=== PATIENT | female | born 1960 | race Caucasian/White ===

== ENCOUNTER → 2016-07-18 | Outpatient (CLI) | payer OTHER ==
[~2016-07-18] MED LIST: ALBUAER2 INH; ALEN1TAB21 PO; B-COTAB69 PO; CHOL100010 PO; CLR10 PO; CRF1 PO; CYCL10TA6 PO; DOXY20TA3; FLUT0.15 NAE; GLCSR500 PO; LINA1CAP2 PO; MONT1TAB3 PO; NORT10CA2 PO; NORT50CA PO; OMEG10002 PO; ONDA4TAB46 PO; PANT40TA PO; POTA10CA28 PO; PREMARIN CREAM TOP; PRLSR20 PO; SIMV20TA2 PO; SODI5OIN4 OPB; SUMA100T16 PO; TRAV0.00 OPB; TRAZ100T29 PO; TRIA37.5 PO; ZANTAC PO; doxycycline PO
== END | disposition home or self-care (01) ==
LOC: C.LABBFT 08:39
PROVIDERS: ATTEND Internal Medicine Endocrinology, Diabetes & Metabolism
DX: Z86.39 Personal history of other endocrine, nutritional and metabolic disease (principal); N20.0 Calculus of kidney; E04.2 Nontoxic multinodular goiter

== ENCOUNTER → 2016-08-18 | Day surgery (SDC) | payer OTHER ==
[~2016-08-18] VITALS: Ht 154.9 cm; Wt 93.0 kg
[~2016-08-18] MED LIST changes: +COSYNTROPIN INJ 1 MCG in SYRINGE 0 ML IV SCH
[2016-08-18 07:38] VITALS: BP 131/86; PULSE 94; TEMP 36.4; O2SAT 95; Ht 154.9 cm; Wt 93.0 kg
[2016-08-18 08:27] VITALS: BP 105/72; PULSE 92; TEMP 36.6; O2SAT 93
[2016-08-18 09:02] VITALS: BP 105/74; PULSE 88; TEMP 36.7; O2SAT 94
== END | disposition home or self-care (01) ==
LOC: C.MTU 07:17
PROVIDERS: ATTEND Internal Medicine Endocrinology, Diabetes & Metabolism
DX: Z86.39 Personal history of other endocrine, nutritional and metabolic disease (principal)

== ENCOUNTER → 2016-08-28 | Outpatient (CLI) | payer OTHER ==
[~2016-08-28] MED LIST changes: -ALEN1TAB21 PO; -B-COTAB69 PO; -CLR10 PO; -COSYNTROPIN INJ 1 MCG in SYRINGE 0 ML IV SCH; -DOXY20TA3; -MONT1TAB3 PO; -NORT10CA2 PO; -TRAZ100T29 PO; -doxycycline PO
--- NOTE | 2016-08-28 14:28 | MAMMOGRAPHY REPORT ---
BILATERAL DIGITAL SCREENING MAMMOGRAM WITH CAD: 08/28/2016 CLINICAL HISTORY: Routine screening. Patient has no complaints. TECHNIQUE: Bilateral CC, MLO and repeat MLO views with more anterior compression were obtained. Cur rent study was also evaluated with a Computer Aided Detection (CAD) system. COMPARISON: Comparison is made to exams dated: 07/30/2015 mammogram, 07/28/2013 mammogram, 07/09/2012 m ammogram, 07/06/2011 mammogram, 06/23/2010 mammogram, and 06/22/2009 mammogram - [facility] enter. BREAST COMPOSITION: The tissue of both breasts is almost entirely fatty. FINDINGS: There are a few benign-appearing coarse calcifications in the breasts. No new suspicious mass, architectural distortion or cluster of microcalcifications is seen. IMPRESSION: ACR BI-RADS CATEGORY 1: NEGATIVE There is no mammographic evidence of malignancy. A 1 year screening mammogram is recommended. The p atient will receive written notification of the results. Approximately 10% of breast cancers are not detected with mammography. A negative mammographic repor t should not delay biopsy if a clinically suggestive mass is present. Vanessa Alvarenga M.D. ay/:08/28/2016 14:21:42 Dyed Raw Stock Blower Feeder: Melvin WILSON(R)(Yumiko), [facility] letter sent: Normal 1/2 BI-RADS Code: ACR BI-RADS Category 1: Negative
== END | disposition home or self-care (01) ==
LOC: C.MAMM 13:56
PROVIDERS: ATTEND Internal Medicine
DX: Z12.31 Encounter for screening mammogram for malignant neoplasm of breast (principal)

== ENCOUNTER → 2016-11-14 | Outpatient (CLI) | payer OTHER ==
[2016-11-14 09:31] LABS: BASO % 0.9 %; BASO ABS # 0.08 K/uL (0-0.2); COMPLETE YES; EOS % 1.6 %; HEMATOCRIT 44.8 % (37-47); IG% 0.2 %; LYMPH % 29.7 %; LYMPH ABS # 2.55 K/uL (1.2-3.4); MEAN CELL VOLUME 87.7 fL (80-100); MEAN CORPUSCULAR HEMOGLOBIN 28.6 pg (25-34); MEAN CORPUSCULAR HGB CONC 32.6 g/dl (32-36); MEAN PLATELET VOLUME 9.6 fL (7.4-10.4); NEUT % 59.6 %; PLATELET COUNT 309 K/uL (130-400); RED BLOOD COUNT 5.11 M/uL (4.2-5.4); WHITE BLOOD COUNT 8.59 K/uL (4.8-10.8)
[2016-11-14 10:04] LABS: ALT/SGPT 55 U/L (12-78); AST/SGOT 34 U/L (15-37); BLOOD UREA NITROGEN 13 mg/dl (7-18); BUN/CREATININE RATIO 13.2 (10-20); CALCIUM 8.9 mg/dl (8.5-10.1); CARBON DIOXIDE 29 mmol/L (21-32); CHLORIDE 106 mmol/L (98-107); GLUCOSE 108 mg/dl (70-99); POTASSIUM 3.9 mmol/L (3.5-5.1); SODIUM 143 mmol/L (136-145)
[2016-11-14 10:06] LABS: ALKALINE PHOSPHATASE 88 U/L (45-117)
[2016-11-14 10:15] LABS: MANUAL MICROSCOPIC REQUIRED? NO; REVIEW REQ? NO; URINE APPEARANCE CLEAR (CLEAR); URINE BILIRUBIN NEG (NEG); URINE COLOR YELLOW; URINE NITRITE NEG (NEG); URINE PH 5.5 (4.5-7.5); URINE SPECIFIC GRAVITY 1.018 (1.000-1.030); UROBILINOGEN NEG (NEG); ZZUR CULT IF INDIC CLEAN CATCH NO
[2016-11-14 10:24] LABS: ESTIMATED AVERAGE GLUCOSE 120 mg/dl; HA1C FLAG Normal (Normal)
== END | disposition home or self-care (01) ==
LOC: C.LAB1850 08:49
PROVIDERS: ATTEND Internal Medicine
DX: R73.01 Impaired fasting glucose (principal)

== ENCOUNTER → 2016-11-29 | Day surgery (SDC) | payer OTHER ==
[2016-11-22 10:13] VITALS: BMI 41.0
[~2016-11-29] VITALS: Ht 154.9 cm; Wt 97.7 kg
[~2016-11-29] MED LIST changes: -CRF1 PO; -FLUT0.15 NAE; +LIDOCAINE HCL 2% 2 ML VIAL (20MG/ML) ONE; -PRLSR20 PO; +PROPOFOL IV EMULSION 10 MG/ML 20 ML VIAL IV ONE; +SODIUM CHLORIDE 0.9% 500ML 500 ML IV ONE
[2016-11-29 10:37] VITALS: Ht 154.9 cm; Wt 97.7 kg
--- NOTE | 2016-11-29 11:24 | Endo History and Physical ---
History & Physical Date of Service: Nov 29, 2016. Chief Complaint: CONSTIPATION Referring Physician: DR JOANNE GRAFF History of Present Illness 56 yo CF who presents for colonoscopy secondary to change in bowel habits with constipation. Past Medical History Diabetes, Osteoporosis, Asthma, Gastrointestinal Disorder, Glaucoma, Reflux, High Cholesterol, Heart Disease, Hypertension, Thyroid Disease, Kidney Disease, Depression Past Surgical History Hx Cardiac Surgery: No Hx Internal Defibrillator: No Hx Pacemaker: No Hx Abdominal Surgery: Yes (KI BSO,) Hx of Implantable Prosthesis: No Hx Post-Op Nausea and Vomiting: No Hx Cancer Surgery: No (BASAL CELL CHEST) Hx Thoracic Surgery: No (L4-L4 SURG,ABLATION OCCIPITAL/CRANIAL NERVE/C2-C5,) Hx Orthopedic: Yes (LUMBAR FUSION, LARM NERVE SURG,PLANTAR FASCITIS R FOOT,CTR BILAT) Hx Urinary Tract Surgery: Yes (,BLADDER SUSP) Family History None Social History Smoking Status: Never Smoker Hx Substance Use: No Hx Alcohol Use: No Allergies Coded Allergies: CI Pigment Blue 63 (Verified Allergy, Severe, HIGH FEVER, "HANDS LOCK UP" , 11/29/16) Carbamazepine (Verified Allergy, Severe, RASH, FACIAL NUMBNESS, 11/29/16) blurry vision, tongue and facial numbness Duloxetine (Verified Allergy, Severe, HIGH FEVER, "HANDS LOCK UP", 11/29/16 ) Milnacipran (Verified Allergy, Severe, IRRITATION/SWELLING IN EYES, ) Oxcarbazepine (Verified Allergy, Severe, HIVES, 11/29/16) Bimatoprost (Verified Allergy, Intermediate, IRRITATION/SWELLING IN EYES, 11/29/16) Irritated eyes Celecoxib (Verified Allergy, Intermediate, HIVES, 11/29/16) Topiramate (Verified Allergy, Intermediate, BLISTERS IN MOUTH, 11/29/16) Amitriptyline (Verified Allergy, Mild, NUMBNESS, 11/29/16) Gabapentin (Verified Allergy, Mild, SWELLING, 11/29/16) Pregabalin (Verified Allergy, Mild, SWELLING, 11/29/16) Adhesives (Unverified Allergy, Unknown, SKIN BLISTERS WITH PAPER TAPE, ) Corticosteroids (Verified Allergy, Unknown, [place] disease., 11/29/16) Tricyclic Antidepressants (Verified Allergy, Unknown, NUMBNESS AFTER TAKING AMITRIPTYLINE, 11/29/16) Valproic Acid (Verified Adverse Reaction, Severe, TACHYCARDIA/SHAKINESS, ) Tachycardia Benzalkonium Chloride (Verified Adverse Reaction, Intermediate, IRRITATION /SWELLING IN EYES, 11/29/16) Irritated eyes Fentanyl (Verified Adverse Reaction, Mild, VOMIT, 11/29/16) Morphine (Verified Adverse Reaction, Mild, VOMIT, 11/29/16) Current Medications Reported Home Medications Medications Dose Route/Sig Max Daily Dose Days Date Category Dose Instructions [Premarin Cream] 1 Dose TOP 2XWEEK 11/22/16 Reported Sunday Zofran (Ondansetron HCl) 4 Mg Tab 4 Mg PO PRN PRN 11/22/16 Reported [Zantac] 1 Tab PO HS PRN 11/22/16 Reported Protonix (Pantoprazole Sodium) 40 Mg Tab 40 Mg PO QAM 11/22/16 Reported Dyazide 37.5MG/25MG (Triamterene/HCTZ) Cap 1 Cap PO QAM 30 08/18/16 Reported Pamelor (Nortriptyline HCl) 50 Mg Cap 50 Mg PO HS 08/18/16 Reported Linzess (Linaclotide) 290 Mcg Cap 290 Mg PO QAM 01/08/15 Reported Travatan Z (Travoprost) 0.004 % Tomas 1 Drop OPB HS 11/24/14 Reported Devyn 128 Oph (Sodium Chloride) Oint 0.5 Inch OPB HS 11/24/14 Reported Flexeril (Cyclobenzaprine Hcl) 10 Mg Tab 10 Mg PO TID 06/08/14 Reported Fish Oil ([place]-3 Fatty Acids) 1,000 Mg Cap 1,000 Mg PO BID 06/08/14 Reported Glucophage Ext Rel * (Metformin HCl) 500 Mg Tabcr 500 Mg PO QAM 09/15/11 Reported Vitamin D (Cholecalciferol) 1,000 Inter.unit Tab 1,000 Inter.unit PO BID 02/17/11 Reported Imitrex (Sumatriptan Succinate) 100 Mg Tab 100 Mg PO PRN 02/17/11 Reported ONE TABLET AT ONSET OF MIGRAINE.MAY REPEAT IN TWO HOURS BUT NO MORE THAN 2 TABLETS IN 24 HOURS. Micro-K Ext Rel (Potassium Chloride) 10 Meq Capcr 10 Meq PO BID 01/11/10 Reported Zocor (Simvastatin) 20 Mg Tab 20 Mg PO QPM 01/20/09 Reported Ventolin (Albuterol) Inh 2 Puff INH QID PRN 02/28/06 Reported Vital Signs Weight (Kilograms): 97.73 Height (Feet): 5 Height (Inches): 1 Date Time Temp Pulse Resp B/P (MAP) Pulse Ox O2 Delivery O2 Flow Rate FiO2 11/29/16 10:58 36.6 83 18 117/81 (93) 97 Room Air Physical Exam General Appearance: WD/WN, no apparent distress Respiratory/Chest: Auscultation: breath sounds normal Cardiovascular: Heart Auscultation: RRR Abdomen: Bowel Sounds: normal Inspection & Palpation: soft, non-distended, no tenderness, guarding & rebound Assessment and Plan Assessment: 56 yo CF who presents for colonoscopy secondary to change in bowel habits with constipation. Plan: Proceed with colonoscopy.
--- NOTE | 2016-11-29 12:12 | Discharge Instructions ---
Endoscopy Patient Instructions Date / Procedure(s) Performed Nov 29, 2016. Colonoscopy, EGD Allergy Information Coded Allergies: CI Pigment Blue 63 (Verified Allergy, Severe, HIGH FEVER, "HANDS LOCK UP" , 11/29/16) Carbamazepine (Verified Allergy, Severe, RASH, FACIAL NUMBNESS, 11/29/16) blurry vision, tongue and facial numbness Duloxetine (Verified Allergy, Severe, HIGH FEVER, "HANDS LOCK UP", 11/29/16 ) Milnacipran (Verified Allergy, Severe, IRRITATION/SWELLING IN EYES, ) Oxcarbazepine (Verified Allergy, Severe, HIVES, 11/29/16) Bimatoprost (Verified Allergy, Intermediate, IRRITATION/SWELLING IN EYES, 11/29/16) Irritated eyes Celecoxib (Verified Allergy, Intermediate, HIVES, 11/29/16) Topiramate (Verified Allergy, Intermediate, BLISTERS IN MOUTH, 11/29/16) Amitriptyline (Verified Allergy, Mild, NUMBNESS, 11/29/16) Gabapentin (Verified Allergy, Mild, SWELLING, 11/29/16) Pregabalin (Verified Allergy, Mild, SWELLING, 11/29/16) Adhesives (Unverified Allergy, Unknown, SKIN BLISTERS WITH PAPER TAPE, ) Corticosteroids (Verified Allergy, Unknown, [place] disease., 11/29/16) Tricyclic Antidepressants (Verified Allergy, Unknown, NUMBNESS AFTER TAKING AMITRIPTYLINE, 11/29/16) Valproic Acid (Verified Adverse Reaction, Severe, TACHYCARDIA/SHAKINESS, ) Tachycardia Benzalkonium Chloride (Verified Adverse Reaction, Intermediate, IRRITATION /SWELLING IN EYES, 11/29/16) Irritated eyes Fentanyl (Verified Adverse Reaction, Mild, VOMIT, 11/29/16) Morphine (Verified Adverse Reaction, Mild, VOMIT, 11/29/16) Discharge Date / Findings Nov 29, 2016. Internal hemorrhoids Medication Instructions OK to resume all medications today as prescribed Reported Home Medications Medications Dose Route/Sig Max Daily Dose Days Date Category Dose Instructions [Premarin Cream] 1 Dose TOP 2XWEEK 11/22/16 Reported Sunday Zofran (Ondansetron HCl) 4 Mg Tab 4 Mg PO PRN PRN 11/22/16 Reported [Zantac] 1 Tab PO HS PRN 11/22/16 Reported Protonix (Pantoprazole Sodium) 40 Mg Tab 40 Mg PO QAM 11/22/16 Reported Dyazide 37.5MG/25MG (Triamterene/HCTZ) Cap 1 Cap PO QAM 30 08/18/16 Reported Pamelor (Nortriptyline HCl) 50 Mg Cap 50 Mg PO HS 08/18/16 Reported Linzess (Linaclotide) 290 Mcg Cap 290 Mg PO QAM 01/08/15 Reported Travatan Z (Travoprost) 0.004 % Tomas 1 Drop OPB HS 11/24/14 Reported Devyn 128 Oph (Sodium Chloride) Oint 0.5 Inch OPB HS 11/24/14 Reported Flexeril (Cyclobenzaprine Hcl) 10 Mg Tab 10 Mg PO TID 06/08/14 Reported Fish Oil ([place]-3 Fatty Acids) 1,000 Mg Cap 1,000 Mg PO BID 06/08/14 Reported Glucophage Ext Rel * (Metformin HCl) 500 Mg Tabcr 500 Mg PO QAM 09/15/11 Reported Vitamin D (Cholecalciferol) 1,000 Inter.unit Tab 1,000 Inter.unit PO BID 02/17/11 Reported Imitrex (Sumatriptan Succinate) 100 Mg Tab 100 Mg PO PRN 02/17/11 Reported ONE TABLET AT ONSET OF MIGRAINE.MAY REPEAT IN TWO HOURS BUT NO MORE THAN 2 TABLETS IN 24 HOURS. Micro-K Ext Rel (Potassium Chloride) 10 Meq Capcr 10 Meq PO BID 01/11/10 Reported Zocor (Simvastatin) 20 Mg Tab 20 Mg PO QPM 01/20/09 Reported Ventolin (Albuterol) Inh 2 Puff INH QID PRN 02/28/06 Reported Provider Instructions Activity Restrictions - No exercising or heavy lifting for 24 hours. - Do not drink alcohol the day of the procedure. - Do not drive a car or operate machinery until the day after the procedure. - Do not make any important decisions or sign important papers in 24 hours after the procedure. Following Day: - Return to full activity which may include returning to work/school. Diet Start your diet with liquids and light foods (jello, soup, juice, toast). Then eat your usual diet if not nauseated. Treatment For Common After Affects For mild abdominal pain, bloating, or excessive gas: - Rest - Eat lightly - Lie on right side Follow-Up Information Follow-up with DR JOANNE GRAFF as scheduled Anesthesia Information What You Should Know You have had a procedure that required some medicine to reduce anxiety and discomfort. This treatment is called moderate sedation. After receiving the treatment, you may be sleepy, but you will be able to breathe on your own. The effects of the treatment may last for several hours. Follow these instructions along with Activity/Diet recommendations noted above: * Do NOT do anything where dizziness or clumsiness would be dangerous. * Rest quietly at home today, then you can be up and about tomorrow. * Have a responsible person stay with you the rest of today. * You may have had an I.V. today. If so, you may take the dressing off later today. Recommendations Call your doctor if: * Trouble breathing * Continuous vomiting for more than 24 hours * Temperature above 101 degrees * Severe abdominal pain or bloating * Pain not relieved by pain medicine ordered * There is increased drainage or redness from any incision * A large amount of rectal bleeding greater than 2-3 tablespoons. (If you had a polyp/s removed or have hemorrhoids, a small amount of blood - from the rectum is to be expected.) * You have any unanswered questions or concerns. IN THE EVENT OF A SERIOUS EMERGENCY, GO TO THE NEAREST EMERGENCY ROOM Your discharge instructions were prepared by provider Cipriano Harvey. Patient Instructions Signature Page Sandra Daigle Patient (or Guardian) Signature/Date: I have read and understand the instructions given to me by my caregivers. Caregiver/RN/Doctor Signature/Date: The above-named patient and/or guardian has received patient instructions on this date. + Original Patient Signature Page (only) stays with chart. Please make copy for patient.
--- NOTE | 2016-11-29 12:19 | GI REPORT ---
Procedure Date: 11/29/2016 11:42 AM Procedure: Colonoscopy Indications: Change in bowel habits, Constipation Medicines: Monitored Anesthesia Care Complications: No immediate complications. Estimated Blood Loss: Estimated blood loss: none. Procedure: Pre-Anesthesia Assessment: - Prior to the procedure, a History and Physical was performed, and patient medications and allergies were reviewed. The patient's tolerance of previous anesthesia was also reviewed. The risks and benefits of the procedure and the sedation options and risks were discussed with the patient. All questions were answered, and informed consent was obtained. Prior Anticoagulants: The patient has taken no previous anticoagulant or antiplatelet agents. ASA Grade Assessment: III - A patient with severe systemic disease. After reviewing the risks and benefits, the patient was deemed in satisfactory condition to undergo the procedure. After I obtained informed consent, the scope was passed under direct vision. Throughout the procedure, the patient's blood pressure, pulse, and oxygen saturations were monitored continuously. The On-site loaner was introduced through the anus and advanced to the terminal ileum. The colonoscopy was performed without difficulty. The patient tolerated the procedure well. The quality of the bowel preparation was good. The terminal ileum, ileocecal valve, appendiceal orifice, and rectum were photographed. Findings: Non-bleeding internal hemorrhoids were found during retroflexion. The hemorrhoids were small. Impression: - Non-bleeding internal hemorrhoids. - No specimens collected. Recommendation: - Resume previous diet. - Continue present medications. - Repeat colonoscopy in 10 years for surveillance. - Return to primary care physician as previously scheduled. Cipriano Harvey DO 11/29/2016 12:19:01 PM This report has been signed electronically. Note Initiated On: 11/29/2016 11:42 AM I attest to the content of the Intraoperative Record and orders documented therein, exceptions below
--- NOTE | 2016-11-29 12:49 | Anesthesiology Progress Note ---
Anesthesia Post Op Note Date & Time Nov 29, 2016 at 12:48 Vital Signs Pain Intensity: 0 Vital Signs Past 12 Hours Date Time Temp Pulse Resp B/P (MAP) Pulse Ox O2 Delivery O2 Flow Rate FiO2 11/29/16 12:28 76 18 127/84 (98) 98 Room Air 11/29/16 12:13 81 16 117/84 (95) 98 Room Air 11/29/16 10:58 36.6 83 18 117/81 (93) 97 Room Air Notes Mental Status: alert / awake / arousable, participated in evaluation Pt Amnestic to Procedure: Yes Nausea / Vomiting: adequately controlled Pain: adequately controlled Airway Patency, RR, SpO2: stable & adequate BP & HR: stable & adequate Hydration State: stable & adequate Anesthetic Complications: no major complications apparent
[2016-11-29 12:57] VITALS: BP 129/85; PULSE 76; O2SAT 98
== END | disposition home or self-care (01) ==
LOC: C.GI 10:26
PROVIDERS: ATTEND Internal Medicine
DX: K59.00 Constipation, unspecified (principal); K64.8 Other hemorrhoids; E11.9 Type 2 diabetes mellitus without complications; M81.0 Age-related osteoporosis without current pathological fracture; K21.9 Gastro-esophageal reflux disease without esophagitis; E78.00 Pure hypercholesterolemia, unspecified; I10 Essential (primary) hypertension; F32.9 Major depressive disorder, single episode, unspecified; Z85.828 Personal history of other malignant neoplasm of skin; Z98.1 Arthrodesis status

== ENCOUNTER → 2017-05-18 | Outpatient (CLI) | payer OTHER ==
[~2017-05-18] MED LIST changes: -LIDOCAINE HCL 2% 2 ML VIAL (20MG/ML) ONE; -PROPOFOL IV EMULSION 10 MG/ML 20 ML VIAL IV ONE; -SODIUM CHLORIDE 0.9% 500ML 500 ML IV ONE
[2017-05-18 17:19] LABS: THYROID STIMULATING HORMONE 1.97 uIu/ml (0.300-4.500)
[2017-05-19 06:40] LABS: ESTIMATED AVERAGE GLUCOSE 117 mg/dl; HA1C FLAG Normal (Normal)
== END | disposition home or self-care (01) ==
LOC: C.LABBFT 12:49
PROVIDERS: ATTEND Internal Medicine Endocrinology, Diabetes & Metabolism
DX: E04.2 Nontoxic multinodular goiter (principal); R73.01 Impaired fasting glucose; E55.9 Vitamin D deficiency, unspecified; R73.03 Prediabetes

== ENCOUNTER → 2017-05-30 | Outpatient (CLI) | payer OTHER ==
--- NOTE | 2017-05-30 10:25 | DIAGNOSTIC IMAGING REPORT ---
CHEST 2 VIEWS ROUTINE CLINICAL HISTORY: J45.909 [id number] Cough dyspnea COMPARISON STUDY: 08/19/2014 FINDINGS: The bones soft tissues and hemidiaphragms are normal. The cardiomediastinal silhouette is normal. The lungs are clear. The pulmonary vasculature is normal. IMPRESSION: Negative chest. The above report was generated using voice recognition software. It may contain grammatical, syntax or spelling errors. Electronically signed by: Syed Live M.D. 05/30/2017 10:23 AM Dictated Date/Time: 05/30/2017 10:23 AM
[2017-05-30 10:45] LABS: BASO % 0.6 %; BASO ABS # 0.06 K/uL (0-0.2); EOS % 1.4 %; EOS ABS # 0.14 K/uL (0-0.5); HEMATOCRIT 45.7 % (37-47); HEMOGLOBIN 15.3 g/dL (12.0-16.0); IG# 0.03 K/uL (0.00-0.02); LYMPH % 9.3 %; LYMPH ABS # 0.91 K/uL (1.2-3.4); MEAN CELL VOLUME 89.3 fL (80-100); MEAN CORPUSCULAR HEMOGLOBIN 29.9 pg (25-34); MEAN CORPUSCULAR HGB CONC 33.5 g/dl (32-36); MEAN PLATELET VOLUME 10.3 fL (7.4-10.4); MONO % 7.7 %; MONO ABS # 0.75 K/uL (0.11-0.59); NEUT % 80.7 %; NEUT ABS # 7.86 K/uL (1.4-6.5); PLATELET COUNT 270 K/uL (130-400); RED CELL DISTRIBUTION WIDTH CV 14.4 % (11.5-14.5); RED CELL DISTRIBUTION WIDTH SD 46.9 fL (36.4-46.3); WHITE BLOOD COUNT 9.75 K/uL (4.8-10.8)
[2017-05-30 11:12] LABS: INFLUENZA B ANTIGEN Neg for Influ B (NEG)
== END | disposition home or self-care (01) ==
LOC: C.RAD1850 09:47
PROVIDERS: ATTEND Internal Medicine Pulmonary Disease
DX: J45.909 Unspecified asthma, uncomplicated (principal)

== ENCOUNTER → 2017-06-05 | Outpatient (CLI) | payer OTHER ==
--- NOTE | 2017-06-05 11:27 | DIAGNOSTIC IMAGING REPORT ---
SOFT TISS HEAD/NECK-THYROID CLINICAL HISTORY: 56 years-old Female presenting with E04.2 Nontoxic multinodular [id number]. TECHNIQUE: Real-time grayscale and color Doppler ultrasound imaging of the thyroid and base of the neck was performed. COMPARISON: 05/16/2016. FINDINGS: Right lobe: Apart from the presence of multiple nodules, thyroid normal in echogenicity and echotexture. The right lobe of the thyroid measures 4.8 x 1.5 x 1.7 cm. Multiple nodules, the largest index lesion below: 1) hypoechoic well-defined wider than tall anterior interpolar nodule now measures 0.9 x 0.7 x 0.6, previously 0.9 x 0.5 x 0.8 cm (intermediate suspicion) Left lobe: Apart from the presence of multiple nodules, thyroid normal in echogenicity and echotexture. The left lobe of the thyroid measures 5.0 x 1.2 x 1.7 cm. Multiple nodules, the largest index lesion below: 1) hypoechoic well-defined round lower pole nodule now measures 1.1 x 0.9 x 1.1 cm, previously 1.2 x 1.1 x 1.2 cm (intermediate suspicion) Isthmus: The isthmus measures 2 mm in thickness. No nodules. IMPRESSION: Multinodular thyroid without significant change in the appearance of the nodules. By [place] thyroid Association criteria, fine-needle aspiration of the left thyroid lobe nodule would be recommended given its size if no prior biopsy has been performed. Electronically signed by: Tung Da Silva M.D. 06/05/2017 11:26 AM Dictated Date/Time: 06/05/2017 11:21 AM
== END | disposition home or self-care (01) ==
LOC: C.ULTR 10:26
PROVIDERS: ATTEND Internal Medicine Endocrinology, Diabetes & Metabolism
DX: E04.2 Nontoxic multinodular goiter (principal)

== ENCOUNTER → 2018-01-15 | Outpatient (CLI) | payer OTHER ==
[2018-01-15 17:11] LABS: BASO % 0.3 %; BASO ABS # 0.03 K/uL (0-0.2); EOS ABS # 0.17 K/uL (0-0.5); HEMATOCRIT 45.6 % (37-47); HEMOGLOBIN 15.3 g/dL (12.0-16.0); IG# 0.02 K/uL (0.00-0.02); LYMPH % 33.3 %; LYMPH ABS # 2.87 K/uL (1.2-3.4); MEAN CORPUSCULAR HEMOGLOBIN 29.5 pg (25-34); MEAN CORPUSCULAR HGB CONC 33.6 g/dl (32-36); MEAN PLATELET VOLUME 10.4 fL (7.4-10.4); MONO % 7.7 %; MONO ABS # 0.66 K/uL (0.11-0.59); NEUT % 56.5 %; NEUT ABS # 4.86 K/uL (1.4-6.5); PLATELET COUNT 315 K/uL (130-400); RED CELL DISTRIBUTION WIDTH SD 45.1 fL (36.4-46.3); WHITE BLOOD COUNT 8.61 K/uL (4.8-10.8)
[2018-01-15 17:23] LABS: BLOOD UREA NITROGEN 15 mg/dl (7-18); CREATININE 1.26 mg/dl (0.60-1.20); GLUCOSE 96 mg/dl (70-99)
[2018-01-15 17:24] LABS: CALCIUM 9.2 mg/dl (8.5-10.1); CARBON DIOXIDE 26 mmol/L (21-32); POTASSIUM 3.9 mmol/L (3.5-5.1); SODIUM 138 mmol/L (136-145)
[2018-01-16 05:53] LABS: HEMOGLOBIN A1C 5.8 % (4.5-5.6)
== END | disposition home or self-care (01) ==
LOC: C.LABBFT 13:41
PROVIDERS: ATTEND Internal Medicine
DX: Z00.00 Encounter for general adult medical examination without abnormal findings (principal); Z01.818 Encounter for other preprocedural examination; I10 Essential (primary) hypertension; R73.01 Impaired fasting glucose

== ENCOUNTER 2018-10-29 06:54 | Observation (INO) ==
--- NOTE | 2018-10-23 12:19 | PAT Medication Instructions ---
Medication Instructions Date of Service October 23, 2018 Home Medications albuterol sulfate [Ventolin HFA] 2 puff INHALATION Q4 PRN cholecalciferol (vitamin D3) [Vitamin D3] 1,000 unit PO BID cyclobenzaprine 10 mg PO BID hydroxychloroquine [Plaquenil] 400 mg PO QAM linaclotide [Linzess] 290 mcg PO QAM metformin 500 mg PO QAM omega 4-ryk-wmf-fish oil [Fish Oil] 1 tab PO BID pantoprazole 40 mg PO QAM potassium chloride 10 meq PO BID ranitidine HCl 150 mg PO HS simvastatin [Zocor] 20 mg PO HS sodium chloride [Devyn 128] 0.25 inch OPHTHALMIC (EYE) HS sumatriptan succinate 1 dose SUBCUT UD PRN sumatriptan succinate [Imitrex] 1 tab PO UD PRN tacrolimus 1 applic TOPICAL BID tizanidine [Zanaflex] 4 mg PO HS travoprost [Travatan Z] 1 drp OPHTHALMIC (EYE) HS trazodone 200 mg PO HS triamterene-hydrochlorothiazid 1 cap PO QAM vitamin B complex 1 tab PO BID erenumab-aooe [Aimovig Autoinjector] ASK your prescriber and surgeon hydroxychloroquine [Plaquenil] 400 mg PO QAM erenumab-aooe [Aimovig Autoinjector] STOP taking 2 weeks before surgery (or as soon as possible if surgery is within 2 weeks) omega 3-mke-rvb-fish oil [Fish Oil] 1 tab PO BID STOP taking 24 hours before surgery tacrolimus 1 applic TOPICAL BID DO NOT take the morning of surgery cholecalciferol (vitamin D3) [Vitamin D3] 1,000 unit PO BID cyclobenzaprine 10 mg PO BID linaclotide [Linzess] 290 mcg PO QAM metformin 500 mg PO QAM potassium chloride 10 meq PO BID triamterene-hydrochlorothiazid 1 cap PO QAM vitamin B complex 1 tab PO BID Take morning of surgery With a small sip of water, OTHERWISE NOTHING TO EAT OR DRINK AFTER MIDNIGHT: albuterol sulfate [Ventolin HFA] 2 puff INHALATION Q4 PRN (use if needed; please bring with you to hospital day of surgery if possible) pantoprazole 40 mg PO QAM sumatriptan succinate 1 dose SUBCUT UD PRN (if needed) sumatriptan succinate [Imitrex] 1 tab PO UD PRN (if needed) Take evening before surgery albuterol sulfate [Ventolin HFA] 2 puff INHALATION Q4 PRN (if needed) cholecalciferol (vitamin D3) [Vitamin D3] 1,000 unit PO BID cyclobenzaprine 10 mg PO BID potassium chloride 10 meq PO BID ranitidine HCl 150 mg PO HS simvastatin [Zocor] 20 mg PO HS sodium chloride [Devyn 128] 0.25 inch OPHTHALMIC (EYE) HS sumatriptan succinate 1 dose SUBCUT UD PRN (if needed) sumatriptan succinate [Imitrex] 1 tab PO UD PRN (if needed) tizanidine [Zanaflex] 4 mg PO HS travoprost [Travatan Z] 1 drp OPHTHALMIC (EYE) HS trazodone 200 mg PO HS vitamin B complex 1 tab PO BID Other Notes If you have any questions please call us at [phone] or [phone] or [phone] or [phone]
--- NOTE | 2018-10-24 08:41 | Anesthesiology Consultation ---
Date of Service October 24, 2018 Assessment & Plan (1) Encounter for pre-operative examination: - "Temperature went up" during subsequent lithotripsy in . Patient denies she was told term malignant hyperthermia or that she would have an issue with future surgeries. She states she was told by anesthesiologist in the past that "we don't use that medication anymore anyway." Patient states issue resolved with monitoring; no medical intervention needed that she is aware of. MH precautions used with 2014 lumbar surgery at [facility]. OR made aware for MH precautions. - Possible difficult intubation 2/2 decreased cervical extension due to DDD - Check BSG AM DOS Chart Review Chart Review: Acceptable Risk for Surgery (pending review of confirmed EKG done 10/24/18 at [facility] (report still unconfirmed at time of review)) and Patient seen in Pre Admission Testing Teaching & Discussion Pre-Anesthesia Teaching/Discussion Notes: Instructed NPO after midnight before surgery,except medications with 15 cc of water. Medication instructions provided according to the PAT guidelines. History Surgery Operation Date: 10/29/18 07:30 Proposed Procedures p Cystoscopy, Mid Urethral Sling, Cystocele Repair, Rectocele Repair - Garry Boyle II, DO Height/Weight Height: 5 ft 1 in Weight: 93.3 kg Allergies Allergy/AdvReac Type Severity Reaction Status Date / Time carbamazepine Allergy Severe RASH, Verified 10/23/18 13:17 FACIAL NUMBNESS duloxetine Allergy Severe HIGH Verified 10/23/18 13:17 FEVER, "HANDS LOCK UP" milnacipran Allergy Severe IRRITATION/SWELLING Verified 10/23/18 13:17 IN EYES oxcarbazepine Allergy Severe HIVES Verified 10/23/18 13:17 bimatoprost Allergy Intermediate IRRITATION/SWELLING Verified 10/23/18 13:17 IN EYES celecoxib Allergy Intermediate HIVES Verified 10/23/18 13:17 topiramate Allergy Intermediate BLISTERS Verified 10/23/18 13:17 IN MOUTH amitriptyline Allergy Mild NUMBNESS Verified 10/23/18 13:17 gabapentin Allergy Mild SWELLING Verified 10/23/18 13:17 pregabalin Allergy Mild SWELLING Verified 10/23/18 13:17 adhesive Allergy Unknown SKIN Verified 10/23/18 13:18 BLISTERS WITH PAPER TAPE Corticosteroids Allergy Unknown Miya Verified 10/23/18 13:18 (Glucocorticoids) disease. valproic acid AdvReac Severe TACHYCARDIA Verified 10/23/18 13:18 /SHAKINESS benzalkonium chloride AdvReac Intermediate IRRITATION/SWELLING Verified 10/23/18 13:18 IN EYES fentanyl AdvReac Mild VOMIT Verified 10/23/18 13:18 morphine AdvReac Mild VOMIT Verified 10/23/18 13:18 Tricyclic Antidepressants Allergy Unknown NUMBNESS Uncoded 10/23/18 13:18 AFTER TAKING AMITRIPTYLINE Medications Home Medications Medication Instructions Recorded Confirmed Last Taken Linzess 290 mcg PO QAM 02/27/18 10/23/18 03/26/18 albuterol sulfate [Ventolin HFA] 2 puff INHALATION Q4 PRN 02/27/18 10/23/18 03/04/18 cholecalciferol (vitamin D3) 1,000 unit PO BID 02/27/18 10/23/18 03/26/18 [Vitamin D3] cyclobenzaprine 10 mg PO BID 02/27/18 10/23/18 03/26/18 hydroxychloroquine [Plaquenil] 400 mg PO QAM 02/27/18 10/23/18 03/26/18 metformin 500 mg PO QAM 02/27/18 10/23/18 03/26/18 omega 5-nxb-iiu-fish oil [Fish Oil] 1 tab PO BID 02/27/18 10/23/18 03/26/18 pantoprazole 40 mg PO QAM 02/27/18 10/23/18 03/26/18 potassium chloride 10 meq PO BID 02/27/18 10/23/18 03/26/18 ranitidine HCl 150 mg PO HS PRN 02/27/18 10/23/18 03/26/18 simvastatin [Zocor] 20 mg PO HS 02/27/18 10/23/18 03/26/18 sodium chloride [Devyn 128] 0.25 inch OPHTHALMIC (EYE) HS 02/27/18 10/23/18 03/26/18 sumatriptan succinate 1 dose SUBCUT UD PRN 02/27/18 10/23/18 03/13/18 sumatriptan succinate [Imitrex] 1 tab PO UD PRN 02/27/18 10/23/18 03/13/18 tizanidine [Zanaflex] 4 mg PO HS 02/27/18 10/23/18 03/26/18 trazodone 200 mg PO HS 02/27/18 10/23/18 03/26/18 triamterene-hydrochlorothiazid 1 cap PO QAM 02/27/18 10/23/18 03/26/18 vitamin B complex 1 tab PO BID 02/27/18 10/23/18 03/26/18 cetirizine 10 mg PO QAM 10/23/18 10/23/18 Unknown conjugated estrogens [Premarin] 1 applic TOPICAL [id number] 10/23/18 10/23/18 Unknown latanoprost (PF) 1 drp OPHTHALMIC (EYE) HS 10/23/18 10/23/18 Unknown montelukast 10 mg PO HS 10/23/18 10/23/18 Unknown fremanezumab-vfrm [Ajovy] SUBCUT MONTHLY 10/24/18 Unknown Past Medical History Medical History Malignant hyperthermia Possible MH: "Temperature went up" during subsequent lithotripsy in . Patient denies she was told term malignant hyperthermia or that she would have an issue with future surgeries. She states she was told by a nesthesiologist in the past that "we don't use that medication anymore anyway." Patient states issue resolved with monitoring; no medical intervention needed that she is aware of. MH precautions used with 2014 lumbar surgery at [facility] Asthma STABLE BCC (basal cell carcinoma of skin) Barretts esophagus Chronic back pain Depression Diabetes mellitus, type 2 NIDDM Fibromyalgia GERD (gastroesophageal reflux disease) CONTROLLED Glaucoma BILT EYES Glaucoma Hyperlipidemia Hypertension IBS (irritable bowel syndrome) Kidney stones Migraine Nodular thyroid disease Osteoarthritis Sjogrens syndrome ON PLAQUENIL Spinal stenosis Exercise / Class Metabolic Activity III < 4 Walking/Shop/Light housework Past Family History Family History Family/Other Family history of diabetes mellitus MATERNAL AUNTS/UNCLES Grandmother Family history of diabetes mellitus MATERNAL Past Surgical History Surgical History H/O carpal tunnel repair B/L ARMS H/O foot surgery RIGHT PLANTAR FACISITIS H/O surgical procedure 2006 GUM SX TO REMOVE INFECTION History of YAG laser capsulotomy of lens B/L EYES History of bladder surgery BLADDER TUCK History of colonoscopy History of dilatation and curettage History of esophagogastroduodenoscopy (EGD) History of lithotripsy X2 History of lumbar fusion L4-L5 History of surgery REMOVE BONE FRAGMENT FROM GUMS History of surgery on arm LEFT ARM REPAIR SEVERED NERVE History of tonsillectomy History of tooth extraction WISDOM TEETH History of total abdominal hysterectomy and bilateral salpingo-oophorectomy S/P foot surgery, left HAMMER TOE REPAIR S/P foot surgery, right HAMMER TOE REPAIR S/P thyroid biopsy X2 (BENIGN) TMJ (dislocation of temporomandibular joint) NO LOCKING Past Anesthesia History No Family Hx of Anesthesia Complications and Other Patient does report spinal headache with initial lithotripsy. "Temperature went up" during subsequent lithotripsy in . Patient denies she was told term malignant hyperthermia or that she would have an issue with future surgeries. She states she was told by anesthesiologist in the past that "we don't use that medication anymore anyway." Patient states issue resolved with monitoring; no medical intervention needed that she is aware of. prec autions used with 2014 lumbar surgery at [facility]. OR made aware for precautions. History of PONV No Hx of PONV and No Hx of Motion Sickness Social History Smoking Status: Never smoker Do You Dip or Chew Tobacco: No Hx Alcohol Use: No Hx Substance Use: No substance use type: does not use Review of Systems Patient denies chest pain, shortness of breath, cough, wheezing, palpitations. Physical Exam Vital Signs VITALS BP 124/79 P 83 TEMP 97.8 SP02 94%RA RESP 18 PHYSICAL Decreased cervical extension due to DDD Full TMJ range of motion. TMD 3 finger breaths Mallampati Score 2 Dentition: missing sides/molars Lungs: clear throughout to auscultation Cardiac: regular rate and rhythm, no murmurs noted Spine: cervical fat pad noted Carotid arteries: negative bruit Extremities: no edema Testing Laboratory Results 01/15/18 HGBA1C 5.8% 10/24/18 09:00 10/24/18 09:00 10/24/18 09:00 Urine Color Dark Yellow Urine Appearance Clear Urine pH 6.0 Ur Specific [place] 1.019 Urine Protein Negative Urine Glucose (UA) Negative Urine Ketones Negative Urine Nitrite Negative Ur Leukocyte Esterase Negative Electrocardiogram Date: 10/24/18 NSR at 73bpm. Rightward axis. Prolonged QT. *Unconfirmed report* Chest X-Ray Date: 10/24/18 Findings: + NAD Old, healed left-sided rib fractures. Echocardiogram Date: 06/30/11 EF 60%. No RWMA. No significant valvular disease.
--- NOTE | 2018-10-24 09:28 | XRay Report ---
XR chest Pre-admission PA/Lat HISTORY: Preop. COMPARISON: Chest 02/17/2011. FINDINGS: No pneumothorax. No pleural effusions. Old, healed left-sided rib fractures. The lungs are clear. The heart is normal in size. IMPRESSION: No acute process. Electronically signed by: Perez Beckett M.D. 10/24/2018 9:26 AM
[2018-10-24 10:00] LABS: Basophils # (auto) 0.05 K/uL (0-0.2); Basophils % (auto) 0.8 %; Eosinophils # (auto) 0.18 K/uL (0-0.5); Eosinophils % (auto) 2.8 %; Hematocrit (blood only) 43.6 % (37-47); Hemoglobin 14.5 g/dL (12.0-16.0); Immature Granulocytes # (auto) 0.01 K/uL (0.00-0.02); Immature Granulocytes % (auto) 0.2 %; Lymphocytes # (auto) 1.78 K/uL (1.2-3.4); Lymphocytes % (auto) 28.1 %; Mean Corpuscular Hgb Conc 33.3 g/dL (32-36); Mean Corpuscular Volume 88.4 fL (80-100); Mean Platelet Volume 10.1 fL (7.4-10.4); Monocytes % (auto) 11.1 %; Neutrophils # (auto) 3.61 K/uL (1.4-6.5); Platelet Count 243 K/uL (130-400); RDW Coefficient of Variation 14.2 % (11.5-14.5); RDW Standard Deviation 45.9 fL (36.4-46.3); Red Blood Count 4.93 M/uL (4.2-5.4); White Blood Count 6.33 K/uL (4.8-10.8)
[2018-10-24 10:07] LABS: BUN Creatinine Ratio 12.3 (10-20); Calcium 9.3 mg/dl (8.5-10.1); Creatinine Clr Calc Pharmacy 58.3 ml/min; Est GFR (African American) 65.3; Est GFR (Non-African American) 56.4; Potassium 3.7 mmol/L (3.5-5.1)
[2018-10-24 10:12] LABS: Appearance Urine Clear (Clear); Bilirubin Urine Negative (Negative); Blood Urine Negative (Negative); Color Urine Dark Yellow; Glucose Urine UA Negative (Negative); Ketones Urine Negative (Negative); Leukocyte Esterase Urine Negative (Negative); Nitrite Urine Negative (Negative); Protein Urine Negative (Negative); Specific Gravity Urine 1.019 (1.000-1.030); Urobilinogen Urine Negative (Negative)
[~2018-10-29 06:54] MED LIST changes: -ALBUAER2 INH; +CEFAZOLIN 2000MG 2,000 MG/15 ML SYR IV SCH; -CHOL100010 PO; -CYCL10TA6 PO; -GLCSR500 PO; -LINA1CAP2 PO; +LR 15ML/HR IV SCH; -NORT50CA PO; -OMEG10002 PO; -ONDA4TAB46 PO; -PANT40TA PO; -POTA10CA28 PO; -PREMARIN CREAM TOP; -SIMV20TA2 PO; -SODI5OIN4 OPB; -SUMA100T16 PO; -TRAV0.00 OPB; -TRIA37.5 PO; -ZANTAC PO
--- OUTSIDE RECORDS SUMMARY | 2018-10-29 06:57 | External Medical Summary | Continuity of Care Document ---
:1960 Author Name Kamryn Lombardo, Provider Address Unavailable Unavailable , Care Team Providers Name Role Phone Abi Lindsey Unavailable [email or web address] Kyler PFEIFFER, Reinaldo Unavailable [email or web address] Ruth Hinson PA-C Unavailable [email or web address] Maurilio Adrian PA-C Unavailable [email or web address] Rin PFEIFFER Unavailable [email or web address] Zenon Lombardo Unavailable [email or web address] Julius FLOYD Unavailable [email or web address] Maurilio Cabrera M.D. Unavailable [email or web address] Tiffanie YARBROUGH M.D. Unavailable Unavailable Beverly AGUAYO M.D. Unavailable Unavailable Case Carolyn LUJAN Unavailable [email or web address] Unavailable Unavailable Unavailable Problems Murmur (785.2) (R01.1) Solitary thyroid nodule (241.0) (E04.1) Bunion of right foot (727.1) (M21.611) Neoplasm of uncertain behavior (238.9) (D48.9) Vaginal yeast infection (112.1) (B37.3) Dysuria (788.1) (R30.0) Incontinence (788.30) (R32) Female stress incontinence (625.6) (N39.3) Prolapse of female pelvic organs (618.9) (N81.9) Migraine (346.90) (G43.909) Urinary, incontinence, stress female (625.6) (N39.3) Dysuria (788.1) (R30.0) Cystocele Glaucoma (365.9) (H40.9) Diabetes (250.00) (E11.9) Arthritis (716.90) (M19.90) Stress incontinence in female (625.6) (N39.3) Sjogren's syndrome (710.2) (M35.00) Granda's esophagus (530.85) (K22.70) Snoring (786.09) (R06.83) Prediabetes (790.29) (R73.03) 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) History of [place]'s syndrome (V12.29) (Z86.39) Pelvic floor dysfunction (618.83) (M62.89) Gastroesophageal reflux disease (530.81) (K21.9) Constipation (564.00) (K59.00) Eczema (692.9) (L30.9) Chronic rhinitis (472.0) (J31.0) Hypertension (401.9) (I10) Impaired fasting glucose (790.21) (R73.01) Preop examination (V72.84) (Z01.818) Vaginitis (616.10) (N76.0) Cough (786.2) (R05) Allergic rhinitis (477.9) (J30.9) Postmenopausal (V49.81) (Z78.0) Abnormal C-reactive protein (790.99) (R79.89) Osteopenia of neck of right femur (733.90) (M85.851) Osteopenia of neck of left femur (733.90) (M85.852) Right otitis externa (380.10) (H60.91) Otitis media, right (382.9) (H66.91) Impacted cerumen of right ear (380.4) (H61.21) Headache (784.0) (R51) Insomnia (780.52) (G47.00) Osteopenia (733.90) (M85.80) Eustachian tube dysfunction (381.81) (H69.80) Breast pain (611.71) (N64.4) Breast enlargement Myalgia and myositis (729.1) Internal hemorrhoids (455.0) (K64.8) Hyperlipidemia (272.4) (E78.5) Fibromyalgia (729.1) (M79.7) Depression (311) (F32.9) Diarrhea (787.91) (R19.7) History of Miya disease (V12.29) (Z86.39) Kidney stones (592.0) (N20.0) Dry mouth (527.7) (R68.2) Dry eyes, bilateral (375.15) (H04.123) Vitamin D deficiency (268.9) (E55.9) Nonspecific lymphadenitis (289.3) (I88.9) N&V (nausea and vomiting) (787.01) (R11.2) Head Injury - With Subdural Hemorrhage (852.20) Hair loss (704.00) (L65.9) Absence of both cervix and uterus, acquired (V88.01) (Z90.71 0) Spinal stenosis (724.00) (M48.00) Eyelid cyst (374.84) (H02.829) Encounter for routine gynecological examination (V72.31) (Z0 1.419) Pelvic pain (R10.2) Hypertrophy of breast (611.1) (N62) Allergic urticaria (708.0) (L50.0) Carpal tunnel syndrome (354.0) (G56.00) Seeing An Eye Doctor Asthma (493.90) (J45.909) Postmenopausal atrophic vaginitis (627.3) (N95.2) Urge and stress incontinence (788.33) (N39.46) Cervicalgia (723.1) (M54.2) Occipital neuralgia (723.8) (M54.81) Closed angle glaucoma (365.20) (H40.20X0) Dry Eyes Allergies and Adverse Reactions carBAMazepine TABS (Allergy) Reaction: O ther CeleBREX CAPS (Allergy) Reaction: Hives Corticosteroids (Allergy) Reaction: Othe r Cymbalta CPEP (Allergy) Reaction: Parest hesia Depakote TBEC (Allergy) Reaction: Tachyc ardia Elavil TABS (Allergy) Reaction: Paresthe marianela fentaNYL Citrate SOLN (Allergy) Reaction : Vomiting Gabapentin CAPS (Allergy) Reaction: Pare sthesia Lumigan SOLN (Allergy) Reaction: Other Lyrica CAPS (Allergy) Reaction: Other Morphine Derivatives (Allergy) Reaction: Vomiting oxcarbazepine (Allergy) Reaction: Hives Savella TABS (Allergy) Reaction: Other Topamax TABS (Allergy) Reaction: Other Medications Potassium Chloride ER 10 MEQ Oral Capsul e Extended Release; take 1 capsule twice a day Munira Yarbrough Start: 21-Jun-2011 Quantity: 180 Refills: 3 Simvastatin 20 MG Oral Tablet; TAKE 1 TABLET EVERY NIG HT AT BEDTIME MARGARETTE Adrian Start: 14-Jan-2018 Quantity: 90 Refills: 3 Vitamin D 1000 UNIT CAPS; TAKE 2 CAPSULE Daily MARGARETTE Hinson Start: 21-Jun-2011 Quantity: 180 Refills: 3 [place] Saline Nasal Neti Rinse 1.57 GM Nasal Packet; USE DIR ECTED ON PACKAGE Start: 04-Oct-2011 Refills: 0 Cyclobenzaprine HCl - 10 MG Oral Tablet; TAKE 1 TABLET 3 TIMES DAILY NEEDED. Munira Cabrera Quantity: 270 Refills: 1 SUMAtriptan Succinate 100 MG Oral Tablet ; TAKE 1 TABLET AT ONSET OF MIGRAINE HEADACHE. OCTOBER REPEAT IN 2 HOURS IF NEEDED. Munira Cabrera Start: 27-Feb-2012 Quantity: 27 Refills: 1 Fish Oil 1000 MG Oral Capsule; TAKE 2 CAPSULE DAILY. Start: 05-Jun-2013 Quantity: 60 Refills: 0 Triamterene-HCTZ 37.5-25 MG Oral Capsule; TAKE 1 CAPSU LE EVERY DAY MARGARETTE Adrian Start: 14-Jan-2018 Quantity: 90 Refills: 3 Linzess 290 MCG Oral Capsule; TAKE 1 CAP CLARISSA Daily Take 30 minutes before breakfast. MARIEL Brenner Start: 29-Dec-2014 Quantity: 90 Refills: 3 Pantoprazole Sodium 40 MG Oral Tablet De layed Release; TAKE 1 TABLET Daily Take 30 minutes prior to breakfast. MARIEL Brenner Start: 03-Oct-2016 Quantity: 90 Refills: 3 raNITIdine HCl - 150 MG Oral Capsule; TAKE 1 CAPSULE A T BEDTIME NEEDED MARIEL Brenner Start: 21-Nov-2016 Quantity: 30 Refills: 5 tiZANidine HCl - 4 MG Oral Tablet; TAKE 1 TABLET AT BEDTIME. Refills: 0 traZODone HCl - 100 MG Oral Tablet; TAKE 2 TABLETS AT BEDTIME. MARGARETTE Adrian Start: 20-Feb-2018 Quantity: 180 Refills: 1 SUMAtriptan Succinate 6 MG/0.5ML Subcuta neous Solution Auto-injector; USE DIRECTED Munira Cabrera Start: 24-Aug-2017 Quantity: 2 2 x 0.5 ML Cartridge Refills: 5 Montelukast Sodium 10 MG Oral Tablet; TA KE 1 TABLET BY MOUTH EVERYDAY AT BEDTIME MARGARETTE Gar Start: 01-Oct-2017 Quantity: 90 Refills: 3 Vitamin B Complex Oral Tablet Start: Refills: 0 Ventolin HFA 108 (90 Base) MCG/ACT Inhal ation Aerosol Solution; INHALE 2 PUFFS EVERY 4 HOURS NEEDED MARGARETTE Chávez Start: 14-Nov-2017 Quantity: 1 18 GM Inhaler Refills: 5 Amoxicillin-Pot Clavulanate 875-125 MG O ral Tablet; TAKE 1 TABLET EVERY 12 HOURS DAILY. MARGARETTE Chávez Quantity: 20 Refills: 0 Devyn 128 OINT; APPLY 1/2 INCH RIBBON INTO AFFECTED EYE(S) AT BEDTIME. 3.5 GM Tube Refills: 0 Hydroxychloroquine Sulfate 200 MG Oral Tablet; Take 1 tablet twice daily Refills: 0 Latanoprost 0.005 % Ophthalmic Solution; INSTILL 1 DROP INTO AFFECTED EYE(S) ONCE DAILY DIRECTED. Start: 23-May-2018 Refills: 0 2.5 ML Bottle metFORMIN HCl - 500 MG Oral Tablet Refills: 0 Premarin 0.625 MG/GM Vaginal Cream; APPL Y A PEA-SIZED AMOUNT TO VAGINAL OPENING 3 TO 4 TIMES PER WEEK. MARIEL Madrid Start: 07-Aug-2018 Quantity: 1 30 GM Tube Refills: 11 Ajovy 225 MG/1.5ML Subcutaneous Solution Prefilled Syringe; INJECT 225MG ONCE MONTHLY Munira Cabrera Start: 29-Aug-2018 Quantity: 1 1.5 ML Syringe Refills: 11 predniSONE 10 MG Oral Tablet; Take 4 pil ls daily for 2 days, then 3 pills daily for 2 days, then 2 pills daily for 2 days, then 1 pill daily for 2 days. MARGARETTE Chávez Start: 10-Oct-2018 Quantity: 20 Refills: 2 Cetirizine HCl - 10 MG Oral Tablet; TAKE 1 TABLET Daily Start: 16-Oct-2018 Refills: 3 Procedures History of Complete Colonoscopy Status: Completed History of Renal Lithotripsy Status: Com pleted History of Surgery Status: Completed History of Hysterectomy Status: Complete d History of Tonsillectomy Status: Complet ed History of Foot Surgery Status: Complete d History of Eye Surgery Status: Completed History of Surgery Status: Completed History of Mid-Urethral Sling Operation Status: Completed History of Neuroplasty Decompression Median Nerve At Carpal Status: Completed Tunnel History of Iridotomy By YAG Laser Status : Completed History of Laminectomy Lumbar Status: Co mpleted History of Spinal Arthrodesis Status: Co mpleted Immunizations Hepatitis B On: 1998 Pneumococcal polysaccharide vaccine, 23 valent On: Jun-2010 Tdap (Adacel) On: Aug-2010 Influenza On: Feb-2011 Influenza On: 05-Mar-2012 16:06 Lot #: [id number], SANOFI PASTEUR Influenza On: 12-Mar-2013 15:53 Lot #: [id number], SANOFI PASTEUR Influenza On: Mar-2014 Fluzone Quadrivalent 0.5 ML Intramuscular Suspension On: Mar-2014 9:50 Lot #: [id number], SANOFI PASTEUR Zoster (Zostavax) On: 03-Nov-2014 Fluzone Quadrivalent 0.5 ML Intramuscular Suspension On: Mar-2015 15:01 Lot #: [id number], SANOFI PASTEUR Fluzone Quadrivalent 0.5 ML Intramuscular Suspension On: Mar-2016 13:38 Lot #: [id number], SANOFI PASTEUR Prevnar 13 Intramuscular Suspension 1 On: 14-Nov-2017 9:03 Lot #: [id number], PFIZER [place].S. Tdap On: 08-Jan-2018 Family History Mother Family history of Hypertension (V17.49) Status: Active Family history of Lung Cancer (V16.1) Status: Active Family history of arthritis (V17.7) (Z82.61) Status: Active Family history of irritable bowel syndrome (V18.59) (Z83.79) Status: Active Family history of lung cancer (V16.1) (Z80.1) Status: Active Family history of hypertension (V17.49) (Z82.49) Status: Act milton Unknown Family Member Family history of Hypertension (V17.49) Status: Active Comments: Family History Family history of Lung Cancer (V16.1) Status: Active Co mments: Family History Family history of Skin Cancer (V16.8) Status: Active Co mments: Family History Family history of Nephrolithiasis Status: Active Commen ts: Family History Family history of Heart Disease (V17.49) Status: Active Comments: Family History Family history of lung cancer (V16.1) Status: Active Co mments: Family History (Z80.1) Family history of malignant neoplasm of skin Status: Active Comments: Family History (V16.8) (Z80.8) Family history of malignant neoplasm of Status: Active Comments: Family History urinary bladder (V16.52) (Z80.52) Father Family history of Skin Cancer (V16.8) Status: Active Family history of Heart Disease (V17.49) Status: Active Family history of Coronary heart disease (414.00) (I25.10) S tatus: Active Family history of hypertension (V17.49) (Z82.49) Status: Act milton Family history of cardiac disorder (V17.49) (Z82.49) Status: Active Sister Family history of Nephrolithiasis Status: Active Family history of hypertension (V17.49) (Z82.49) Status: Act milton Family history of kidney stones (V18.69) (Z84.1) Status: Act milton Brother Family history of hypertension (V17.49) (Z82.49) Status: Act milton Grandmother Family history of kidney stones (V18.69) (Z84.1) Status: Act milton Plan of Treatment Planned Encounters Appointment; Devon Cabrera M.D. Start: 29-Nov-2018 11:45 Req uest Planned Observations Planned Goals not documented Results In-House UA (Urology) (Pending) Laboratory: In House 23-Oct-2018 10:24 VOID, CC, CATH CC Turbid, Clear, Hazy Clear Gluc 0 Prot 0 Nitrate 0 Leuk 0 Blood 0 pH 5.0 X-Ray Chest Preadm Testing Laboratory: [facility] Diagnostic Imag ing [address] [facility] [place] 24-Oct-2018 9:26 X-Ray Chest Preadm Testing (CXRPRE) Kathie don [facility] [phone] XRay Report P atient: JUAN ANTONIO ROMAN Admit Date: 10/24 MR#: [id number] Address1: [address] Acct ID:[id number] Address2: [address] Date: 1960 [facility] Zip: [place] [address] Age: 58 Locat ion: PAT Sex: F Room/Bed: Att Phy: Garry Boyle II, DO Diagnos is: Urge and Stress Incontinence Prolap se of Femal Pel Yvonne Phy: Soraya Yarbrough MD Service Da te: 10/24/18 Fam Phy: Soraya Yarbrough MD I nterpreti ng Phy: Perez Beckett MD Admit Phy: Ordering Phy: St saranya Boyle II, DO cc: XR chest Pre-admission PA/Lat HISTORY: Preop. COMPARISON: Chest 02/17/2011. FINDIN GS: No pneumothorax. No pleural effusions. Old, healed left-sided rib fractures. The lungs are clear. The heart is normal in size. IMPRESSION : No acute process. Electronically signed by: Perez Beckett M.D. 10/24/2018 9:2 6 AM Dictated: 10/24/18 09 Transcribed: 10/24/18 09 Encounters Appointment; Garry Boyle II, DO 23-Oct-2018 10:30 Encounter Diagnosis: Problem not documented Appointment; Garry Boyle II, DO 11-Sep-2018 15:40 Encounter Diagnosis: Problem not documented Appointment; Devon Cabrera M.D. 29-Aug-2018 12:30 Encounter Diagnosis: Problem not documented Appointment; Garry Boyle II, DO 07-Aug-2018 14:25 Encounter Diagnosis: Problem not documented Appointment; Urology, Room 7 07-Aug-2018 14:20 Encounter Diagnosis: Problem not documented Appointment; Urology, Nursing Station 01-Aug-2018 10:45 Encounter Diagnosis: Problem not documented Appointment; Garry Boyle II, DO 19-Jul-2018 12:40 Encounter Diagnosis: Problem not documented Appointment; Marlena Gutiérrez PA-C 25-Jun-2018 11:15 Encounter Diagnosis: Problem not documented Appointment; Gonsalo Burgess M.D. 06-Jun-2018 15:00 Encounter Diagnosis: Problem not documented Appointment; Reinaldo Chávez PA-C 23-May-2018 15:00 Encounter Diagnosis: Problem not documented Appointment; Acacia Mckinley M.D. 08-May-2018 11:10 Encounter Diagnosis: Problem not documented Appointment; Devon Cabrera M.D. 28-Feb-2018 13:30 Encounter Diagnosis: Problem not documented Appointment; Abi Brenner CRNP 29-Jan-2018 15:00 Encounter Diagnosis: Problem not documented Appointment; Soraya Yarbrough M.D. 15-Jan-2018 13:00 Encounter Diagnosis: Problem not documented Appointment; Reinaldo Chávez PA-C 14-Nov-2017 15:00 Encounter Diagnosis: Problem not documented Appointment; Nurse Temitope 07-Nov-2017 11:00 Encounter Diagnosis: Problem not documented Appointment; Tanna Ramirez CRNP 31-Oct-2017 13:30 Encounter Diagnosis: Problem not documented Appointment; Gabby Gar PA-C 01-Oct-2017 13:30 Encounter Diagnosis: Problem not documented Appointment; Devon Cabrera M.D. 24-Aug-2017 14:30 Encounter Diagnosis: Problem not documented Appointment; Soraya Yarbrough M.D. 06-Jul-2017 14:30 Encounter Diagnosis: Problem not documented Appointment; Soraya Yarbrough M.D. 18-May-2017 12:00 Encounter Diagnosis: Problem not documented Appointment; Acacia Mckinley M.D. 16-May-2017 9:10 Encounter Diagnosis: Problem not documented Appointment; Reinaldo Chávez PA-C 25-Apr-2017 10:45 Encounter Diagnosis: Problem not documented Appointment; Ruth Hinson PA-C 23-Mar-2017 16:00 Encounter Diagnosis: Problem not documented Appointment; Jeni Adrian PA-C 26-Jan-2017 9:00 Encounter Diagnosis: Problem not documented Appointment; Devon Cabrera M.D. 25-Jan-2017 9:45 Encounter Diagnosis: Problem not documented Appointment; Soraya Yarbrough M.D. 28-Nov-2016 16:30 Encounter Diagnosis: Problem not documented Appointment; Abi Brenner CRNP 14-Nov-2016 11:10 Encounter Diagnosis: Problem not documented Appointment; Soraya Yarbrough M.D. 01-Nov-2016 10:00 Encounter Diagnosis: Problem not documented Appointment; Devon Cabrera M.D. 29-Nov-2018 11:45 Encounter Diagnosis: Problem not documented
[2018-10-29] MEDS ORDERED: PROPOFOL IV EMULSION 10 MG/ML 20 ML VIAL IV ONE (07:05)
[2018-10-29] MEDS ORDERED: NEOSTIGMINE METHYLSULFATE 5 MG/5 ML SYR ONE (07:05)
[2018-10-29] MEDS ORDERED: LIDOCAINE HCL 2% 2 ML VIAL/AMP(20MG/ML) INFIL ONE (07:05)
[2018-10-29] MEDS ORDERED: fentaNYL citrate 100 MCG/2 ML VIAL ONE (07:05)
[2018-10-29] MEDS ORDERED: DEXAMETHASONE SOD INJ 4 MG/ML VIAL ONE (07:05)
[2018-10-29] MEDS ORDERED: ONDANSETRON INJ 2 MG/ML 2 ML VIAL ONE (07:05)
[2018-10-29] MEDS ORDERED: MIDAZOLAM HCL 1 MG/ML 2ML VIAL ONE ×2 (07:05→08:09)
[2018-10-29] MEDS ORDERED: GLYCOPYRROLATE 0.2 MG/ML VIAL ONE (07:05)
[2018-10-29] MEDS ORDERED: BACITRACIN INJ 50,000 UNIT VIAL ONE (07:18)
[2018-10-29] MEDS ORDERED: VASOPRESSIN 20 UNIT/ML VIAL ONE (07:18)
[2018-10-29] MEDS ORDERED: PREMARIN VAG CRM 14 APPLN/30 GM TUBE ONE (07:18)
[2018-10-29] MEDS ORDERED: LIDOCAINE/EPINEPHRINE 1% 20 ML VIAL ONE (07:18)
--- NOTE | 2018-10-29 07:22 | History & Physical Bridge Note ---
Date of Service October 29, 2018 History & Physical Bridge Note I have examined the patient, reviewed the History & Physical and in the interval since the performance of the History & Physical I have noted the following changes of clinical significance: no changes noted
[2018-10-29] MEDS ORDERED: REMIFENTANIL HCL 1 MG VIAL ONE (07:39)
[2018-10-29] MEDS ORDERED: ACETAMINOPHEN 1000 MG/100 ML IV IV ONE (07:39)
[2018-10-29] MEDS ORDERED: PROPOFOL IV EMULSION 10 MG/ML 100 ML VIAL IV ONE (07:39)
[2018-10-29] MEDS ORDERED: BUPIVACAINE 0.5 % 5 MG/1 ML PF 10ML VIAL ONE (08:14)
[2018-10-29] MEDS ORDERED: KETAMINE HCL INJ 50 MG/ML 10 ML VIAL ONE (08:56)
[2018-10-29] MEDS ORDERED: ALBUTEROL HFA INHALER 8.5 GM ONE (10:00)
--- NOTE | 2018-10-29 10:33 | Post Operative Brief Note ---
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 I was immediately available: during the entire case. Back up surgeon: was not required during procedure.
[2018-10-29] MEDS ORDERED: FLUMAZENIL 0.1 MG/1 ML 10 ML VIAL IV PRN (10:56)
[2018-10-29] MEDS ORDERED: ONDANSETRON INJ 2 MG/ML 2 ML VIAL IV PRN (10:56)
[2018-10-29] MEDS ORDERED: fentaNYL citrate 100 MCG/2 ML VIAL IV PRN (10:56)
[2018-10-29] MEDS ORDERED: ePHEDrine sulfate 50 MG/ML AMP IV PRN (10:56)
[2018-10-29] MEDS ORDERED: ATROPINE SULFATE 0.1 MG/ML 10ML SYR IV PRN (10:56)
[2018-10-29] MEDS ORDERED: LABETALOL HCL IV 5 MG/ML 20ML IV PRN (10:56)
[2018-10-29] MEDS ORDERED: PROMETHAZINE HCL 12.5 MG in SODIUM CHLORIDE 0.9% 50 ML IV PRN (10:56)
[2018-10-29] MEDS ORDERED: NALOXONE HCL 0.4 MG/1 ML VIAL/CARP IV PRN (10:56)
--- NOTE | 2018-10-29 11:33 | Anesthesiology Progress Note ---
Date of Service October 29, 2018 Anesthesia Post Procedure Vital Signs Vital Signs: Temp Pulse Resp BP Pulse Ox 10/29/18 11:15 73 20 123/66 100 10/29/18 11:05 76 22 111/65 99 10/29/18 10:55 83 25 H 116/69 99 10/29/18 10:47 36.3 C L 82 16 116/69 94 10/29/18 07:19 36.6 C 79 18 137/102 H 95 Transfer of Care Handoff Completed per policy Notes Mental Status: alert / awake / arousable Patient Amnestic to Procedure: Yes Nausea / Vomiting: adequately controlled Pain: adequately controlled Airway Patency, RR, SpO2: stable & adequate BP & HR: stable & adequate Hydration State: stable & adequate Anesthetic Complications: no major complications apparent
[2018-10-29] MEDS ORDERED: MoRPHine SULFATE 2 MG/ML CARP IV PRN (11:56)
[2018-10-29] MEDS ORDERED: OXYCODONE HCL IR 5 MG TAB (IMMEDIATE RELEASE) PO PRN (11:56)
[2018-10-29] MEDS ORDERED: MoRPHine SULFATE 10 MG/ML CARP/VIAL IV PRN (11:56)
[2018-10-29] MEDS ORDERED: ALBUTEROL HFA 8 GM INHALER INH PRN (11:56)
[2018-10-29] MEDS ORDERED: PHENAZOPYRIDINE HCL 200 MG TAB PO PRN (11:56)
[2018-10-29] MEDS ORDERED: PHARMACY GLYCEMIC MGMT CONSULT PRN (12:24)
[2018-10-29] MEDS: OXYCODONE HCL IR 5 MG TAB (IMMEDIATE RELEASE) PO PRN ×2 (12:39→23:52)
[2018-10-29] MEDS: SODIUM CHLORIDE 0.9% 1000ML 1,000 ML IV SCH (12:39)
--- NOTE | 2018-10-29 13:13 | Urology Progress Note ---
Date of Service October 29, 2018 Assessment & Plan (1) Female stress incontinence: 58yo F s/p cystocele repair and midurethral sling insertion Doing well post operatively. She is sore as expected. Oropeza draining clear yellow. Okay for soft diet tonight, encouraged to ambulate lightly (to keep packing intact). Will continue to monitor closely, likely home tomorrow as long as she continues to progress. Subjective 58yo F s/p cystocele repair and midurethral sling insertion today. Doing well post operatively. Sore as expected, tolerated catheter okay. Denies vaginal bleeding. No nausea/vomiting. Review of Systems Review of Systems: All systems reviewed & are unremarkable except as noted in HPI & below Physical Exam Physical Exam: A&OX3 RRR Abd soft, nontender oropeza draining hazy yellow Results & Data Vital Signs (Past 12 Hours) Vital Signs Temp Pulse Resp BP BP Pulse Ox 10/29/18 12:44 69 18 101/65 94 10/29/18 12:18 72 17 110/67 97 10/29/18 11:40 36.4 C L 73 16 115/68 96 10/29/18 11:25 36.0 C L 82 20 112/65 97 10/29/18 11:15 73 20 123/66 100 10/29/18 11:05 76 22 111/65 99 10/29/18 10:55 83 25 H 116/69 99 10/29/18 10:47 36.3 C L 82 16 116/69 94 10/29/18 07:19 36.6 C 79 18 137/102 H 95
--- NOTE | 2018-10-29 13:44 | Operative Report ---
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 Specimens Vaginal Mucosa Drains 18 Fr Oropeza Anesthesia Type General Complications none Disposition Disposition: Recovery Room Indications Significant POP with stress incontinence. Risks and benefits discussed at length. Description of Procedure Patient was consented, brought to the OR, and placed in the dorsal lithotomy position under general anesthesia. She was prepped and draped in the standard sterile fashion and a time out was completed. With the time out completed, a 16 Fr Oropeza catheter was placed. The vaginal cavity was irrigated with saline and bacitracin fluid. A full pelvic exam was completed. The Rectocele appeared less significant than previously assessed and the apical region was found to be well support. The majority of prolapse was noted to be from the cystocele. A small urethral caruncle was noted. The rectocele was assessed to be approx 3 cm back and the cystocele appeared to just go past the line of Diaz. Reduction of the cystocele also seemed to improve the remainder of the prolapse. Plan was to proceed with anterior repair as well as sling placement. After irrigation, the midurethral area of the vagina was marked and lidocaine and petressin solution was injected for hydrodissection. The vaginal mucosa anteriorly in the area of the cystocele was also marked and injected for hydrodissection. A 15 blade scalpel was used to incise the vaginal mucosa overlying the cystocele. The tissue was then slowly dissected free. The tissue below was preserved. The vaginal mucosa flap was raised on each side. The allowed better assessment of the cystocele. The perivesicular/vaginal tissues were assessed. A 3-0 vicryl suture in a purse string stitch was placed to plicate the tissues. This was completed x5 moving more laterally and bulking the tissue in the midline. After the 3rd stitching, a 2-0 vicryl was used for the remainder. The cystocele was adequately reduced. Care was taken to monitor surrounding landmarks. The vaginal mucosa was assessed. The left side was trimmed with a metzenbaum scissor and this was sent for pathologic analysis. The area was copiously irrigated. The incision was closed in an interrupted fashion with a 2-0 Vicryl suture. Attention was taken to the urethral hypermobility and sling placement. A 15 bl nichole scalpel was used to make an incision approx 1 cm in length below the urethra. The vaginal mucosa was dissected to free a space. All bleeding was controlled with cautery. The space for sling placement was fully developed on each side. At this point, The skin above the pubic bone was marked on each side and local was injected along the course of where the trocars would be placed down to the periosteom which was also injected with local anesthetic. The skin was opened with small incisions on each side. Utilizing the catheter and a finger in the midurethral opening the trocar was placed along the superior pubic bone and advanced posteriorly down into the midurethral opening. The urethra was retracted to each side during placement to avoid the trocar moving near the urethra. This was repeated for the left side. The oropeza was removed and a scope placed. The entire bladder was assessed. No masses, areas of concern, or lesions were discovered. The cystocele appeared adequately reduced. The trocars appeared in good position without impingment of the tissues and no injuries were noted. The AMS Sparx Sling was selected. This was attached to the trocars and the sling was guided up and out of the suprapubic incisions. This was placed under the urethra in a tension free position. The scope was placed a final time to confirm no mesh or other foreign body or areas of concern in the bladder or urethra. The sheath was cut and the sheath removed to seat the sling. This was assessed. No major issues were found. The sling appeared in good position. Throughout the entire procedure copious irrigation was utilized. The skin was closed with a 4-0 Monocryl suture and glue placed on the incision after the mesh was trimmed. This was bandaged and cleaned. The vaginal mucosa was closed with interrupted 2-0 vicryl suture. Vaginal packing with premarin was placed with plans to remove prior to discharge. The oropeza catheter was kept in place and attached to drainage bag. The patient was cleaned. The drapes removed. All counts were correct x 2 prior to full closure. The patient was aroused from anesthesia and transferred to the PACU in stable condition having tolerated the procedure well without complications. I was present and participated during the entire procedure. MARIEL Enrique was assisting during the entire case. She was utilized during all major portions assisting with retraction, dissection, sling placement, and closure. I attest to the content of the Intraoperative Record and any orders documented therein. Any exceptions are noted below.
[2018-10-29] MEDS: INSULIN ASPART 100 UNITS/ML 3 ML PEN SC SCH ×3 (13:46→20:54)
--- NOTE | 2018-10-29 15:05 | Pharmacy Report ---
Glycemic Control Consultation - Date of Service October 29, 2018 - Scope Scope: Glycemic Pharmacist consulted by Dr Kwon on 10/29/18 for glycemic control and to write orders per [facility] inpatient glycemic control protocol - Objective Weight: 93.4 kg Accuchecks BSG (last 24hrs): 10/29/18 10/29/18 10/29/18 07:29 11:29 12:29 POC Glucose 103 H 96 99 - Recent Pertinent Medications Outpatient Anti-diabetic Regimen: * Metformin 500mg daily * A1c = 5.8 % 01/15/18 - Assessment & Plan Assessment & Plan: ASSESSMENT: * Ms. Brown is a 58yo F unknown to the glycemic service. She is POD: 0 for a urological procedure. Most recent A1C is from 01/15/18 and does not provide an accurate picture of her diabetic status. She was given DXM 8mg IV david- operatively. Regular diet is ordered. * I have ordered an A1C for 10/30/18 PLAN FOR INPATIENT GLYCEMIC CONTROL: * Holding outpatient oral diabetes medications * Basal insulin * non indicated at this juncture * Bolus insulin * NovoLog per scale ACHS or Q6hrs while NPO * Goal Range: Low 110 mg/dL - High 140 mg/dL * Correction Factor: 15 mg/dL/unit * Nutritional / Prandial insulin per carb ratio of 1 unit per 6 grams CHO consumed * Please note that the plan above was derived based on current level of insulin resistance and hospital stress. These recommendations are appropriate for inpatient admission only. Plan of care upon discharge will need to be reassessed to avoid potential outpatient hypo/hyperglycemia. Thank you.
[2018-10-29] MEDS: CEFAZOLIN 2000MG 2,000 MG/15 ML SYR IV SCH ×2 (17:13→23:53)
[2018-10-29] MEDS: CYCLOBENZAPRINE HCL 10 MG TAB PO SCH (20:48)
[2018-10-29] MEDS: CHOLECALCIFEROL 1,000 UNITS TAB PO SCH (20:48)
[2018-10-29] MEDS: OMEGA-3 (PURIFIED FISH OIL) 1 GM CAP PO SCH (20:48)
[2018-10-29] MEDS: VITAMIN B COMPLEX TAB PO SCH (20:48)
[2018-10-29] MEDS ORDERED: SIMVASTATIN 20 MG TAB PO SCH (21:00)
[2018-10-29] MEDS ORDERED: LATANOPROST 0.005% OP SOLN 2.5 ML BTL OP SCH (21:00)
[2018-10-29] MEDS ORDERED: MONTELUKAST SODIUM 10 MG TABLET PO SCH (21:00)
[2018-10-29] MEDS ORDERED: SODIUM CHLORIDE 5% (MURO) OP OINT 3.5 GM TUBE OP PRN (21:00)
[2018-10-29] MEDS ORDERED: TRAZODONE HCL 100 MG TAB PO SCH (21:00)
[2018-10-29] MEDS: ACETAMINOPHEN 1,000 MG/100 ML VIAL IV SCH (21:19)
[2018-10-30] MEDS: SODIUM CHLORIDE 0.9% 1000ML 1,000 ML IV SCH (01:57)
[2018-10-30 05:39] LABS: Basophils # (auto) 0.04 K/uL (0-0.2); Basophils % (auto) 0.5 %; Eosinophils # (auto) 0.14 K/uL (0-0.5); Eosinophils % (auto) 1.7 %; Hematocrit (blood only) 36.9 % (37-47); Hemoglobin 12.2 g/dL (12.0-16.0); Immature Granulocytes # (auto) 0.01 K/uL (0.00-0.02); Immature Granulocytes % (auto) 0.1 %; Lymphocytes # (auto) 1.68 K/uL (1.2-3.4); Lymphocytes % (auto) 20.7 %; Mean Corpuscular Hgb Conc 33.1 g/dL (32-36); Mean Corpuscular Volume 88.7 fL (80-100); Mean Platelet Volume 9.6 fL (7.4-10.4); Monocytes % (auto) 8.6 %; Neutrophils # (auto) 5.56 K/uL (1.4-6.5); Neutrophils % (auto) 68.4 %; Platelet Count 183 K/uL (130-400); RDW Coefficient of Variation 14.3 % (11.5-14.5); RDW Standard Deviation 46.6 fL (36.4-46.3); Red Blood Count 4.16 M/uL (4.2-5.4); White Blood Count 8.13 K/uL (4.8-10.8)
[2018-10-30] MEDS: ACETAMINOPHEN 1,000 MG/100 ML VIAL IV SCH (05:40)
[2018-10-30 05:49] LABS: Prothrombin Time 10.7 Seconds (9.0-12.0)
[2018-10-30 05:54] LABS: BUN Creatinine Ratio 10.4 (10-20); Calcium 7.9 mg/dl (8.5-10.1); Creatinine Clr Calc Pharmacy 58.8 ml/min; Est GFR (African American) 66.1; Potassium 3.8 mmol/L (3.5-5.1)
[2018-10-30 06:16] LABS: Estimated Average Glucose 103 mg/dl; Hemoglobin A1C 5.2 % (4.5-5.6)
--- NOTE | 2018-10-30 08:25 | Urology Progress Note ---
Date of Service October 30, 2018 Assessment & Plan (1) Female stress incontinence: 58yo F POD #1 s/p cystocele repair and midurethral sling insertion Progressing as expected. We will continue to monitor vaginal bleeding closely, appears to be slowing down. Labs stable this AM. D/C oropeza now, will need to be sure she voids spontaneously prior to discharge. She has a history of retention issues. If no spontaneous void in 8 hours, will need to bladder scan and likely replace oropeza. Encourage ambulation. We will maintain vaginal packing until just prior to discharge. Expected clinical course and discharge instructions reviewed. Anticipate discharge this afternoon pending spontaneous void and controlled vaginal bleeding. Subjective 58yo F POD #1 s/p cystocele repair and midurethral sling insertion Overall doing well overnight. She reports some vaginal bleeding- soaking through two pads last evening, but now slowing down. Packing intact. Tolerating PO well. Pain controlled with IV tylenol and oxycodone 10mg once last evening. Denies n/v/f/c. Partner stayed overnight with her last evening. Review of Systems Review of Systems: All systems reviewed & are unremarkable except as noted in HPI & below Physical Exam Physical Exam: A&Ox3 RRR Abd soft, nontender on palpation Vaginal packing intact, old bloody. Dark red spotting on pad. Oropeza draining clear yellow Results & Data Vital Signs (Past 12 Hours) Vital Signs Temp Pulse Pulse Resp BP Pulse Ox 10/30/18 07:44 36.7 C 80 20 104/64 91 10/30/18 03:16 36.8 C 92 H 16 112/67 91 10/29/18 23:04 36.9 C 95 H 16 100/56 L 93 Laboratory Results Laboratory Results - last 48 hr 10/29/18 10/29/18 10/29/18 07:29 11:29 12:29 WBC RBC Hgb Hct MCV MCH MCHC RDW Std Deviation RDW Coeff of Balb[place] Plt Count MPV Immature Gran % (Auto) Neut % (Auto) Lymph % (Auto) Morrison % (Auto) Eos % (Auto) Baso % (Auto) Immature Gran # (Auto) Neut # (Auto) Lymph # (Auto) Morrison # (Auto) Eos # (Auto) Baso # (Auto) PT INR Sodium Potassium Chloride Carbon Dioxide Anion Gap BUN Creatinine Est Cr Clr Drug Dosing Est GFR ( Amer) Est GFR (Non-Af Amer) BUN/Creatinine Ratio Glucose POC Glucose 103 H 96 99 Estimat Average Glucose Hemoglobin A1c Calcium 10/29/18 10/29/18 10/30/18 17:18 20:31 05:16 WBC RBC Hgb Hct MCV MCH MCHC RDW Std Deviation RDW Coeff of Balbina Plt Count MPV Immature Gran % (Auto) Neut % (Auto) Lymph % (Auto) Morrison % (Auto) Eos % (Auto) Baso % (Auto) Immature Gran # (Auto) Neut # (Auto) Lymph # (Auto) Morrison # (Auto) Eos # (Auto) Baso # (Auto) PT 10.7 INR 1.0 Sodium Potassium Chloride Carbon Dioxide Anion Gap BUN Creatinine Est Cr Clr Drug Dosing Est GFR ( Amer) Est GFR (Non-Af Amer) BUN/Creatinine Ratio Glucose POC Glucose 95 90 Estimat Average Glucose Hemoglobin A1c Calcium 10/30/18 10/30/18 10/30/18 05:16 05:16 05:16 WBC 8.13 RBC 4.16 L Hgb 12.2 Hct 36.9 L MCV 88.7 MCH 29.3 MCHC 33.1 RDW Std Deviation 46.6 H RDW Coeff of Balbina 14.3 Plt Count 183 MPV 9.6 Immature Gran % (Auto) 0.1 Neut % (Auto) 68.4 Lymph % (Auto) 20.7 Morrison % (Auto) 8.6 Eos % (Auto) 1.7 Baso % (Auto) 0.5 Immature Gran # (Auto) 0.01 Neut # (Auto) 5.56 Lymph # (Auto) 1.68 Morrison # (Auto) 0.70 H Eos # (Auto) 0.14 Baso # (Auto) 0.04 PT INR Sodium 142 Potassium 3.8 Chloride 108 H Carbon Dioxide 30 Anion Gap 4.0 BUN 11 Creatinine 1.06 Est Cr Clr Drug Dosing 58.8 Est GFR ( Amer) 66.1 Est GFR (Non-Af Amer) 57.0 BUN/Creatinine Ratio 10.4 Glucose 100 H POC Glucose Estimat Average Glucose 103 Hemoglobin A1c 5.2 Calcium 7.9 L
[2018-10-30] MEDS ORDERED: CETIRIZINE HCL 10 MG TABLET PO SCH (09:00)
[2018-10-30] MEDS ORDERED: TRIAMTERENE/HCTZ 37.5/25MG CAP PO SCH (09:00)
[2018-10-30] MEDS ORDERED: POTASSIUM CHLORIDE 10 MEQ TABCR PO SCH (09:00)
[2018-10-30] MEDS ORDERED: HYDROXYCHLOROQUINE SULFATE 200 MG TAB PO SCH (09:00)
[2018-10-30] MEDS ORDERED: LINACLOTIDE 72 MCG CAPSULE PO SCH (09:00)
[2018-10-30] MEDS ORDERED: HEPARIN SOD 5,000 UNIT/0.5 ML VIAL SQ SCH (09:00)
[2018-10-30] MEDS ORDERED: PANTOprazole 40 MG TAB PO SCH (09:00)
[2018-10-30] MEDS: CEFAZOLIN 2000MG 2,000 MG/15 ML SYR IV SCH (09:08)
[2018-10-30] MEDS: VITAMIN B COMPLEX TAB PO SCH (09:10)
[2018-10-30] MEDS: CHOLECALCIFEROL 1,000 UNITS TAB PO SCH (09:10)
[2018-10-30] MEDS: OMEGA-3 (PURIFIED FISH OIL) 1 GM CAP PO SCH (09:10)
[2018-10-30] MEDS: INSULIN ASPART 100 UNITS/ML 3 ML PEN SC SCH (09:14)
[2018-10-30] MEDS: CYCLOBENZAPRINE HCL 10 MG TAB PO SCH (10:35)
[2018-10-30] MEDS ORDERED: ONDANSETRON INJ 2 MG/ML 2 ML VIAL IV PRN (11:14)
[2018-10-30] MEDS ORDERED: ONDANSETRON INJ 2 MG/ML 2 ML VIAL ONE (11:36)
[2018-10-30] MEDS: OXYCODONE HCL IR 5 MG TAB (IMMEDIATE RELEASE) PO PRN (11:41)
--- NOTE | 2018-10-30 14:25 | Discharge Summary ---
Date of Service October 30, 2018 Principal Diagnosis urge and stress incontinence Discharge Exam A&Ox3 RRR Abd soft, nontender scant bloody vaginal discharge/spotting Discharge Data Allergies Allergy/AdvReac Type Severity Reaction Status Date / Time carbamazepine Allergy Severe RASH, Verified 10/29/18 07:24 FACIAL NUMBNESS duloxetine Allergy Severe HIGH Verified 10/29/18 07:24 FEVER, "HANDS LOCK UP" milnacipran Allergy Severe IRRITATION/SWELLING Verified 10/29/18 07:24 IN EYES oxcarbazepine Allergy Severe HIVES Verified 10/29/18 07:24 bimatoprost Allergy Intermediate IRRITATION/SWELLING Verified 10/29/18 07:24 IN EYES celecoxib Allergy Intermediate HIVES Verified 10/29/18 07:24 topiramate Allergy Intermediate BLISTERS Verified 10/29/18 07:24 IN MOUTH amitriptyline Allergy Mild NUMBNESS Verified 10/29/18 07:24 gabapentin Allergy Mild SWELLING Verified 10/29/18 07:24 pregabalin Allergy Mild SWELLING Verified 10/29/18 07:24 adhesive Allergy Unknown SKIN Verified 10/29/18 07:24 BLISTERS WITH PAPER TAPE Corticosteroids Allergy Unknown Miya Verified 10/29/18 07:24 (Glucocorticoids) disease. valproic acid AdvReac Severe TACHYCARDIA Verified 10/29/18 07:24 /SHAKINESS benzalkonium chloride AdvReac Intermediate IRRITATION/SWELLING Verified 10/29/18 07:24 IN EYES fentanyl AdvReac Mild VOMIT Verified 10/29/18 07:24 morphine AdvReac Mild VOMIT Verified 10/29/18 07:24 Tricyclic Antidepressants Allergy Unknown NUMBNESS Uncoded 10/23/18 13:18 AFTER TAKING AMITRIPTYLINE Procedures Performed Operation Date: 10/29/18 08:30 Actual Procedures p Mid Urethral Sling insertion, Cystocele Repair(Not Applicable) - Garry Boyle II, DO s Cystoscopy(Not Applicable) - Garry Boyle II, DO Hospital Course (1) Female stress incontinence: Pt has a diagnosis of stress and urge incontinence, and pelvic organ prolapse. She was admitted s/p planned cystocele repair and midurethral sling insertion. Patient tolerated well, without any complications. She had an uneventful evening, some vaginal bleeding which has since slowed significantly. Labs stable this AM. Beach catheter was removed this AM, post op day one, she was able to void spontaneously 300cc per nursing. Vaginal packing was removed just prior to discharge. Pt understands discharge instructions and feels safe for discharge. Partner at bedside to drive patient home. All questions answered. Follow up arrangements made. Please see H&P and op notes for details of visit. Total Time Total Time Spent Total Time Spent (In Minutes): 15 Total Time Includes: Examination of the Patient, Discharge Planning and Communication With Other Providers Discharge Plan Discharge Items Patient Disposition: Home - Self-Care Reason For Visit: Urge and Stress Incontinence Prolapse of Femal Pel Discharge Diagnosis: Same Discharge Goals: Decrease discomfort and Improve function Activity: Resume your previous activity Lifting: No more than 25 pounds Bathing Comment: Okay to shower in 24 hours. No tub baths or soaking. Sexual Activity: Wait until after follow-up appointment Exercise/Sports: Rest today and Wait until after follow-up appointment Driving/Machine Use: Resume 1 day after discharge Driving/Machine Use Comment: Please do not drive while taking prescription pain medication. Non-emergency contact: Urologist Call non-emergency contact if: you have any medication questions, your pain is not controlled, your pain is worsening, your pain is unusual for you, you have a fever, your temperature is above 101.5, your wound has increased redness, your wound has increased drainage and your wound pain has increased Follow-up/Referrals: Soraya Yarbrough MD [Primary Care Provider] - Diet: Regular Addtl Provider Instructions: Please take all medications as prescribed and keep all follow-ups as scheduled. Please call our office at [phone] with any questions, concerns or need to reschedule appointments for any reason. We are happy to assist you. Recovering at home: * You may see some blood in your urine and pelvic discomfort. * Packing will be removed prior to discharge, but may have discomfort vaginally. * It is okay to take prescription pain medication if you feel you need it. Please be careful if using with your muscle relaxants or trazadone for sleep, do not mix them with pain medications until you know how they will affect you. * Complete 3 days of antibiotic as prescribed, okay to use fluconazole for yeast infection prevention when you feel you need to take it. We recommend having someone with you for the first few days after surgery to help care for you. It is okay to shower tomorrow. Please avoid swimming, bathing or using hot tub until incisions are well healed. Avoid driving until you are not requiring pain medication any further. Walk at least a few times a day. Increase your distance, as you feel able. Stairs in your home are okay. Please avoid strenuous or sexual activity until your follow-up. We recommend using stool softener (i.e. Colace) to prevent constipation and straining, especially the first two weeks post operatively. Call [facility] [place] at [phone] if you experience: Chest pain or trouble breathing (call 454 or go to the hospital). Fever of 101F or higher Symptoms of infection at incision site, including redness or swelling, warmth, or bad-smelling drainage Pain that is not controlled with medicines Prescriptions: New docusate sodium [Colace] 100 mg capsule 100 mg PO BID Qty: 30 RF: 0 oxycodone-acetaminophen [Percocet] 7.5-325 mg tablet 1 tab PO Q8H PRN (Reason: pain) Qty: 14 RF: 0 sulfamethoxazole-trimethoprim [Bactrim DS] 800-160 mg tablet 1 tab PO BID 3 Days Qty: 6 RF: 0 fluconazole 150 mg tablet 150 mg PO DAILY Qty: 1 RF: 0 Continued cyclobenzaprine 10 mg Tablet 10 mg PO BID RF: 0 potassium chloride 10 mEq Capsule, Extended Release 10 meq PO BID RF: 0 sumatriptan succinate [Imitrex] 100 mg Tablet 1 tab PO UD PRN (Reason: Migraine Headache) RF: 0 triamterene-hydrochlorothiazid 37.5-25 mg Capsule 1 cap PO QAM RF: 0 sodium chloride [Devyn 128] 5 % Ointment 0.25 inch OPHTHALMIC (EYE) HS RF: 0 trazodone 100 mg Tablet 200 mg PO HS RF: 0 pantoprazole 40 mg Tablet,Delayed Release (Dr/Ec) 40 mg PO QAM RF: 0 simvastatin [Zocor] 20 mg Tablet 20 mg PO HS RF: 0 ranitidine HCl 150 mg Tablet 150 mg PO HS PRN (Reason: Acid Reflux) RF: 0 vitamin B complex Tablet 1 tab PO BID RF: 0 hydroxychloroquine [Plaquenil] 200 mg Tablet 400 mg PO QAM RF: 0 albuterol sulfate [Ventolin HFA] 90 mcg/actuation Hfa Aerosol Inhaler 2 puff INHALATION Q4 PRN (Reason: Shortness Of Breath Or Wheezing) RF: 0 metformin 500 mg Tablet Extended Release 24 Hr 500 mg PO QAM RF: 0 sumatriptan succinate 6 mg/0.5 mL Pen Injector 1 dose subcut UD PRN (Reason: Migraine Headache) RF: 0 cholecalciferol (vitamin D3) [Vitamin D3] 1,000 unit Capsule 1,000 unit PO BID RF: 0 tizanidine [Zanaflex] 4 mg Capsule 4 mg PO HS RF: 0 omega 1-ooj-ikj-fish oil [Fish Oil] 1,000 mg (120 mg-180 mg) Capsule 1 tab PO BID RF: 0 Linzess 290 mcg Capsule 290 mcg PO QAM RF: 0 latanoprost (PF) 0.005 % Drops 1 drp OPHTHALMIC (EYE) HS RF: 0 cetirizine 10 mg Tablet 10 mg PO QAM RF: 0 Premarin 0.625 mg/gram Cream 1 applic topical [id number] RF: 0 montelukast 10 mg Tablet 10 mg PO HS RF: 0 Ajovy 225 mg/1.5 mL Syringe subcut MONTHLY RF: 0 Stand-Alone Forms: [facility] [employer], Opioid Pain Management [employer]/Other Patient Handouts: Surgery Prevent DVT After Discharge Orders: Discharge Order (Routine); Ordered 10/30/18 Ordered By: Martha Kwon Admission Data Admit Date/Time: 10/29/18 10:49 Attending Provider: Garry Boyle II Admit Provider: Garry Boyle II Primary Care Provider: Soraya Yarbrough Service: Surgical Services Other Interventions: Discharge Summary Assessment (RN) Last Done: 10/30/18 11:57 DC Date/Time DO NOT enter until pt leaves facility: 10/30/18 13:15
== END 2018-10-30 13:15 | disposition home or self-care (01) ==
LOC: 3W 06:54 → ASU 06:54